=== PATIENT | female | born 1985 | race Caucasian/White ===

== ENCOUNTER 2016-11-27 00:48 | Emergency (ER) | payer MEDICAID, OTHER ==
[~2016-11-27] VITALS: Ht 154.9 cm; Wt 54.3 kg
[2016-11-27] MEDS ORDERED: MORPHINE SULFATE 4 MG/ML, 1ML IVPush PRN (02:00)
[2016-11-27] MEDS ORDERED: SODIUM CHLORIDE FLUSH 10ML SYR IVF ONE (02:00)
[2016-11-27] MEDS ORDERED: ONDANSETRON 2MG/ML, 2ML IVPush ONE (02:00)
[2016-11-27] MEDS ORDERED: SODIUM CHLORIDE 0.9% 1,000ML IVBOLUS ONE (02:00)
[2016-11-27 02:01] LABS: HEMOGLOBIN 13.4 g/dL (11.7-16.4); WHITE BLOOD COUNT 7.4 x10^3/uL (3.4-10)
[2016-11-27 02:14] LABS: ASPARTATE AMINO TRANSFERASE 12 U/L (15-37); BLOOD UREA NITROGEN 14 mg/dL (7-18)
[2016-11-27] MEDS ORDERED: MORPHINE SULFATE 4 MG/ML, 1ML ONE (03:17)
[2016-11-27] MEDS ORDERED: ONDANSETRON 2MG/ML, 2ML ONE (03:17)
[2016-11-27 03:55] VITALS: BP 142/104
== END 2016-11-27 04:16 | disposition home or self-care (01) ==
LOC: ED 02:31
DX: R10.32 Left lower quadrant pain (principal); R11.0 Nausea; I10 Essential (primary) hypertension
CPT/HCPCS: 36415; 76830; 80053; 81001; 84703; 85025; 87077; 87086; 96374; 96375; 99285; J2405; J7030; 87186

== ENCOUNTER 2018-03-30 22:10 | Emergency (ER) | payer MEDICAID, OTHER ==
[~2018-03-30] VITALS: Ht 154.9 cm; Wt 56.5 kg
[2018-03-30 22:12] VITALS: BP 148/98
[2018-03-30] MEDS ORDERED: HYDROcodone/APAP 5/325 TABLET ONE (22:24)
[2018-03-30] MEDS ORDERED: HYDROcodone/APAP 5/325 TABLET PO PRN (22:30)
[2018-03-30] MEDS ORDERED: HYDROcodone/APAP 5/325 TABLET PO ONE (22:30)
== END 2018-03-30 23:54 | disposition home or self-care (01) ==
LOC: ED 22:48
DX: S83.402A Sprain of unspecified collateral ligament of left knee, initial encounter (principal); M25.462 Effusion, left knee; I10 Essential (primary) hypertension; W19.XXXA Unspecified fall, initial encounter; Y93.89 Activity, other specified; Y92.009 Unspecified place in unspecified non-institutional (private) residence as the place of occurrence of the external cause; Y99.8 Other external cause status
CPT/HCPCS: 29505; 99283

== ENCOUNTER 2018-10-17 16:13 | Emergency (ER) | payer MEDICAID ==
[~2018-10-17] VITALS: Ht 154.9 cm; Wt 56.3 kg
[2018-10-17 16:20] VITALS: BP 144/95
== END 2018-10-17 18:03 | disposition home or self-care (01) ==
LOC: ED 17:53
DX: R60.9 Edema, unspecified (principal); R21 Rash and other nonspecific skin eruption; F17.200 Nicotine dependence, unspecified, uncomplicated
CPT/HCPCS: 93970; 96372; 99284; J1885

== ENCOUNTER 2019-12-10 16:47 | Emergency (ER) | payer SELFPAY ==
[~2019-12-10] VITALS: Ht 154.9 cm; Wt 57.5 kg
[2019-12-10] MEDS ORDERED: ONDANSETRON 2MG/ML, 2ML ONE (17:46)
[2019-12-10] MEDS ORDERED: MORPHINE SULFATE 4 MG/ML, 1ML ONE ×2 (17:46→19:29)
[2019-12-10] MEDS: MORPHINE SULFATE 4 MG/ML, 1ML IVPush PRN ×2 (17:51→19:34)
--- NOTE | 2019-12-10 17:54 | NUR ---
PT AMBULATED TO BR, URINE COLLECTED/SENT TO LAB. IV PLACED, LABS DRAWN WITH START. PT MEDICATED PER ERP ORDER FOR 8/10 LLQ PAIN. BP CUFF, PULSE OX IN PLACE. VS UPDATED IN COMPUTER. CALL LIGHT WITHIN REACH, WARM BLANKET PROVIDED.
[2019-12-10] MEDS ORDERED: ONDANSETRON 2MG/ML, 2ML IVPush ONE (18:00)
[2019-12-10 18:02] LABS: MICROSCOPIC INDICATED
[2019-12-10 18:03] LABS: BASOPHILS # (AUTO) 0.04 x10^3/uL (0-0.1); BASOPHILS % (AUTO) 1 % (0-1); EOSINOPHILS # (AUTO) 0.06 x10^3/uL (0-0.4); EOSINOPHILS % (AUTO) 1 % (1-7); LYMPHOCYTES # (AUTO) 2.35 x10^3/uL (1-3.4); LYMPHOCYTES % (AUTO) 34 % (22-44); MD NO; MEAN CORPUSCULAR HEMOGLOBIN 32.4 pg (27.0-34.8); MEAN CORPUSCULAR HGB CONC 33.5 g/dL (32.4-35.8); MEAN CORPUSCULAR VOLUME 96.7 fL (80-100); MEAN PLATELET VOLUME 7.6 fL (7.4-10.4); MONOCYTES # (AUTO) 0.62 x10^3/uL (0.2-0.8); MONOCYTES % (AUTO) 9 % (2-9); NEUTROPHILS # (AUTO) 3.81 x10^3/uL (1.8-6.8); NEUTROPHILS % (AUTO) 55 % (42-75); PLATELET COUNT 311 x10^3/uL (130-400); RED BLOOD COUNT 4.59 x10^6/uL (3.82-5.3); RED CELL DISTRIBUTION WIDTH 13.5 % (9.6-15.2)
[2019-12-10 18:07] LABS: ALANINE AMINOTRANSFERASE 20 U/L (12-78); ALBUMIN 3.6 g/dL (3.4-5.0); ANION GAP 6 mmol/L (5-15); CALCIUM 8.7 mg/dL (8.5-10.1); CHLORIDE 109 mmol/L (98-107)
[2019-12-10 18:12] LABS: ALKALINE PHOSPHATASE 111 U/L (45-117); BILIRUBIN,TOTAL 0.3 mg/dL (0.2-1.0); TOTAL PROTEIN 7.7 g/dL (6.4-8.2)
[2019-12-10] MEDS ORDERED: CEFTRIAXONE PMX 1GM/50ML 50 ML IV ONE (18:30)
[2019-12-10] MEDS ORDERED: CEFTRIAXONE PMX 1GM/50ML 50 ML ONE (19:03)
[2019-12-10 19:07] VITALS: BP 119/64
--- NOTE | 2019-12-10 19:35 | NUR ---
PT REMEDICATED PRIOR TO DISCHARGE FOR RETURNING LLQ PAIN, RATED 6 /10. ROCEPHIN COMPLETED, PT D/C'D HOME WITH FAMILY
== END 2019-12-10 19:38 | disposition home or self-care (01) ==
LOC: ED 19:04
DX: N30.00 Acute cystitis without hematuria (principal); R10.32 Left lower quadrant pain
CPT/HCPCS: 36415; 74176; 80053; 81001; 83690; 84703; 85025; 87077; 87086; 96365; 96375; 96376; 99284; J0696; J2270; J2405; 87186

== ENCOUNTER 2020-07-04 15:31 | Emergency (ER) | payer SELFPAY ==
[~2020-07-04] VITALS: Ht 154.9 cm; Wt 60.2 kg
--- NOTE | 2020-07-04 16:06 | NUR ---
Pt arrived with complaints of chest pain x3 days that has gradually gotten more diffuse through hwer chest and radiates to her back. Connected to all monitors, A&O x4, speaking in full sentneces, ambulatory with steady gait, resting comfortably in bed. Hx of HTN, BP 148/99, pt stated that she doesnt take her BP meds anymroe. TARAS
[2020-07-04] MEDS ORDERED: ASPIRIN 81 MG TABLET CHEW PO ONE (16:30)
[2020-07-04] MEDS ORDERED: ASPIRIN 81 MG TABLET CHEW ONE (16:35)
--- NOTE | 2020-07-04 16:37 | NUR ---
xray at bedside
[2020-07-04 17:00] LABS: ALANINE AMINOTRANSFERASE 30 U/L (12-78); ALBUMIN 3.7 g/dL (3.4-5.0); ANION GAP 7 mmol/L (5-15); BASOPHILS % (AUTO) 1 % (0-1); CALCIUM 8.5 mg/dL (8.5-10.1); CHLORIDE 110 mmol/L (98-107); CREATININE 0.83 mg/dL (0.55-1.02); EOSINOPHILS % (AUTO) 1 % (1-7); LYMPHOCYTES % (AUTO) 36 % (22-44); MEAN CORPUSCULAR HEMOGLOBIN 33.1 pg (27.0-34.8); MEAN CORPUSCULAR HGB CONC 34.8 g/dL (32.4-35.8); MEAN PLATELET VOLUME 7.4 fL (7.4-10.4); MONOCYTES % (AUTO) 9 % (2-9); NEUTROPHILS % (AUTO) 52 % (42-75); PLATELET COUNT 297 x10^3/uL (130-400); RED BLOOD COUNT 4.29 x10^6/uL (3.82-5.3); RED CELL DISTRIBUTION WIDTH 13.4 % (9.6-15.2)
[2020-07-04 17:05] LABS: ALKALINE PHOSPHATASE 122 U/L (45-117); BILIRUBIN,TOTAL 0.3 mg/dL (0.2-1.0); TOTAL PROTEIN 7.7 g/dL (6.4-8.2); TROPONIN I < 0.015 ng/mL (0.000-0.045)
[2020-07-04 17:24] VITALS: BP 143/100
--- NOTE | 2020-07-04 17:24 | NUR ---
pt resting comfortably in bed with eyes closed, MOON
== END 2020-07-04 18:40 | disposition home or self-care (01) ==
LOC: ED 18:35
DX: M94.0 Chondrocostal junction syndrome [Tietze] (principal); R07.89 Other chest pain; I10 Essential (primary) hypertension; J45.909 Unspecified asthma, uncomplicated
CPT/HCPCS: 36415; 71045; 80053; 84484; 84703; 85025; 85379; 93005; 99285

== ENCOUNTER 2020-09-05 07:22 | Emergency (ER) | payer SELFPAY ==
[~2020-09-05] VITALS: Ht 154.9 cm; Wt 60.7 kg
[2020-09-05] MEDS ORDERED: DEXAMETHASONE 4 MG/ML, 5ML ONE (07:55)
--- NOTE | 2020-09-05 07:59 | NUR ---
FLOOR INSTALLATION MECHANIC PER MAR.
[2020-09-05] MEDS ORDERED: DEXAMETHASONE 4 MG/ML, 1ML PO ONE (08:00)
[2020-09-05 08:26] LABS: BASOPHILS % (AUTO) 1 % (0-1); EOSINOPHILS % (AUTO) 2 % (1-7); LYMPHOCYTES % (AUTO) 42 % (22-44); MEAN CORPUSCULAR HEMOGLOBIN 33.6 pg (27.0-34.8); MEAN CORPUSCULAR HGB CONC 34.9 g/dL (32.4-35.8); MEAN PLATELET VOLUME 7.4 fL (7.4-10.4); MONOCYTES % (AUTO) 8 % (2-9); NEUTROPHILS % (AUTO) 48 % (42-75); PLATELET COUNT 242 x10^3/uL (130-400); RED BLOOD COUNT 4.24 x10^6/uL (3.82-5.3); RED CELL DISTRIBUTION WIDTH 13.7 % (9.6-15.2)
[2020-09-05 08:39] LABS: ALBUMIN 3.4 g/dL (3.4-5.0); ANION GAP 11 mmol/L (5-15); CALCIUM 8.4 mg/dL (8.5-10.1); CHLORIDE 109 mmol/L (98-107)
[2020-09-05 08:45] LABS: ALANINE AMINOTRANSFERASE 53 U/L (12-78); ALKALINE PHOSPHATASE 98 U/L (45-117); BILIRUBIN,TOTAL 0.4 mg/dL (0.2-1.0); TROPONIN I < 0.015 ng/mL (0.000-0.045)
[2020-09-05 08:51] VITALS: BP 137/92
--- NOTE | 2020-09-05 08:52 | NUR ---
ALL RESULTS ARE BACK AT THIS TIME. CHART UP FOR RECHECK.
--- NOTE | 2020-09-05 08:53 | NUR ---
REPORT GIVEN TO JEN MADERA.
--- NOTE | 2020-09-05 09:21 | NUR ---
DISCHARGE INSTRUCTIONS REVIEWED WITH PT. ALL QUESTIONS ANSWERED AT THIS TIME.
== END 2020-09-05 09:29 | disposition home or self-care (01) ==
LOC: ED 07:52
DX: M94.0 Chondrocostal junction syndrome [Tietze] (principal); B34.9 Viral infection, unspecified; R04.0 Epistaxis; Z20.822 Contact with and (suspected) exposure to COVID-19; I10 Essential (primary) hypertension; F17.210 Nicotine dependence, cigarettes, uncomplicated; R94.31 Abnormal electrocardiogram [ECG] [EKG]; J45.909 Unspecified asthma, uncomplicated
CPT/HCPCS: 36415; 71045; 80053; 84484; 85025; 85379; 93005; 99285; 99406; J1100; U0003; U0005